=== PATIENT | male | born 1960 | race Caucasian/White ===

== ENCOUNTER 2019-03-24 11:11 | Inpatient (IN) | payer MEDICAID ==
[~2019-03-24] VITALS: Ht 180.3 cm; Wt 65.8 kg
[2019-03-24 12:07] LABS: BASOPHILS % (AUTO) 1.2 % (0.0-2.0); EOSINOPHILS % (AUTO) 0.3 % (1.0-6.0); HEMATOCRIT 40.5 % (41-53); HEMOGLOBIN 13.6 g/dL (13.5-17.5); LYMPHOCYTES % (AUTO) 21.2 % (22.0-44.0); MEAN CORPUSCULAR HEMOGLOBIN 35.5 pg (26.0-34.0); MEAN CORPUSCULAR HGB CONC 33.6 G/dL (31.0-37.0); MEAN CORPUSCULAR VOLUME 106 fL (80-100); MONOCYTES # (AUTO) 0.5 K/uL (0.1-1.0); MONOCYTES % (AUTO) 9.5 % (2.0-9.0); NEUTROPHILS # (AUTO) 3.2 K/uL (1.8-7.7); NEUTROPHILS % (AUTO) 67.8 % (40.0-70.0); PLATELET COUNT (AUTO) 153 K/uL (150-450); RED BLOOD CELL COUNT(AUTO) 3.84 MIL/uL (4.50-5.90); RED CELL DISTRIBUTION WIDTH 17.4 % (11.5-14.5)
[2019-03-24 12:09] LABS: ANION GAP 9 mmol/L (8-16); CALCIUM, TOTAL 7.9 mg/dL (8.8-10.5); CARBON DIOXIDE 28 mmol/L (22-29); CHLORIDE 101 mmol/L (98-107); CREATININE 0.76 mg/dL (0.60-1.30); GLOMERULAR FILTR. RATE CALC > 60 mL/min (>60); GLUCOSE,RANDOM 94 mg/dL (70-110); POTASSIUM 3.6 mmol/L (3.5-5.1); SODIUM SERUM 138 mmol/L (136-145); UREA NITROGEN, BLOOD 9 mg/dL (7-18)
[2019-03-24 12:15] LABS: ALANINE AMINOTRANSFERASE 29 U/L (12-78); ALBUMIN 3.1 g/dL (3.4-5.0); ALKALINE PHOSPHATASE 131 U/L (46-116); ASPARTATE AMINOTRANSFERASE 117 U/L (15-37); BILIRUBIN,TOTAL 0.3 mg/dL (0.1-1.0); TOTAL PROTEIN, SERUM 6.7 g/dL (6.4-8.2)
[2019-03-24] MEDS ORDERED: SODIUM CHLORIDE 0.9% 1,000 ML IV ONE (13:15)
[2019-03-24 13:16] LABS: AMPHET/METH SCREEN,URINE NEGATIVE (NEGATIVE); BARBITURATE SCREEN, URINE NEGATIVE (NEGATIVE); BENZODIAZEPINES SCREEN,URINE POSITIVE (NEGATIVE); CANNABINOID SCREEN,URINE NEGATIVE (NEGATIVE); COCAINE SCREEN,URINE NEGATIVE (NEGATIVE); METHADONE SCREEN, URINE NEGATIVE (NEGATIVE); OPIATE SCREEN,URINE NEGATIVE (NEGATIVE); PHENCYCLIDINE SCREEN,URINE NEGATIVE (NEGATIVE)
[2019-03-24] MEDS ORDERED: MAGNESIUM SULFATE 2 GM, MVI, ADULT NO.1 WITH VIT K 10 ML, THIAMINE HCL 100 MG, FOLIC AC... IV ONE ×5 (14:30)
[2019-03-24] MEDS ORDERED: HALOPERIDOL 5 MG TABLET PO PRN (15:00)
[2019-03-24] MEDS ORDERED: LORazepam 2 MG TABLET PO PRN (15:00)
[2019-03-24] MEDS: LORazepam 2 MG TABLET PO PRN ×2 (19:33→23:30)
[2019-03-25] VITALS (10 sets, daily range): BP systolic 118–140; BP diastolic 70–94
[2019-03-25 05:10] LABS: CHOL/HDL RATIO 1.3 (4.2-7.3); FREE T4 (FREE THYROXINE) 0.76 ng/dL (0.76-1.46); THYROID STIMULATING HORMONE 1.09 uIU/mL (0.36-3.74)
[2019-03-25] MEDS: LORazepam 2 MG TABLET PO SCH ×4 (08:06→20:26)
[2019-03-25] MEDS: LORazepam 2 MG TABLET PO PRN (10:27)
[2019-03-25] MEDS: NICOTINE 21 MG/24 HOUR PATCH TD SCH (11:45)
[2019-03-25] MEDS ORDERED: INFLUENZA VIRUS VACCINE QVS 2019-20 (3YR+)/PF 60 MCG/0.5 ML SYRINGE IM ONE (13:15)
[2019-03-25] MEDS: QUEtiapine FUMARATE 100 MG TABLET PO SCH (20:25)
[2019-03-26 06:43] VITALS: BP 128/81
[2019-03-26] MEDS: LORazepam 2 MG TABLET PO SCH ×4 (08:18→20:14)
[2019-03-26] MEDS: NICOTINE 21 MG/24 HOUR PATCH TD SCH (08:18)
[2019-03-26] MEDS: FLUoxetine HCL 20 MG CAPSULE PO SCH (08:18)
[2019-03-26 08:22] LABS: FREE T4 (FREE THYROXINE) 0.85 ng/dL (0.76-1.46); MAGNESIUM 1.5 mg/dL (1.80-2.40); THYROID STIMULATING HORMONE 1.64 uIU/mL (0.36-3.74)
[2019-03-26 08:26] VITALS: BP 124/78
[2019-03-26] MEDS: NICOTINE POLACRILEX 4 MG LOZENGE PO PRN ×2 (12:40→20:52)
[2019-03-26] MEDS: MAGNESIUM OXIDE 400 MG TABLET PO SCH (16:24)
[2019-03-26 18:51] VITALS: BP 131/86
[2019-03-26] MEDS: QUEtiapine FUMARATE 100 MG TABLET PO SCH (20:14)
[2019-03-27 03:55] VITALS: BP 120/87
[2019-03-27] MEDS: NICOTINE POLACRILEX 4 MG LOZENGE PO PRN ×4 (04:00→21:00)
[2019-03-27] MEDS ORDERED: LORazepam 1 MG TABLET PO PRN (07:00)
[2019-03-27 08:15] VITALS: BP 116/82
[2019-03-27] MEDS: MAGNESIUM OXIDE 400 MG TABLET PO SCH ×2 (08:29→16:11)
[2019-03-27] MEDS: FLUoxetine HCL 20 MG CAPSULE PO SCH (08:29)
[2019-03-27] MEDS: LORazepam 1 MG TABLET PO SCH ×4 (08:29→20:14)
[2019-03-27] MEDS: NICOTINE 21 MG/24 HOUR PATCH TD SCH (08:35)
[2019-03-27] MEDS ORDERED: MAG HYDROX/AL HYDROX/SIMETH 30 ML SUSP UDCUP PO PRN (09:15)
[2019-03-27 16:00] VITALS: BP 138/89
[2019-03-27 16:23] VITALS: BP 138/89
[2019-03-27] MEDS ORDERED: ACETAMINOPHEN 325 MG TABLET PO PRN (18:15)
[2019-03-27] MEDS ORDERED: IBUPROFEN 600 MG TABLET PO PRN (18:15)
[2019-03-27 18:43] VITALS: BP 128/82
[2019-03-27] MEDS: QUEtiapine FUMARATE 100 MG TABLET PO SCH (20:14)
[2019-03-27] MEDS: ZOLPIDEM TARTRATE 10 MG TABLET PO PRN (22:31)
[2019-03-28 00:13] VITALS: BP 127/65
[2019-03-28 00:15] VITALS: BP 127/65
[2019-03-28] MEDS: NICOTINE POLACRILEX 4 MG LOZENGE PO PRN ×3 (06:21→16:05)
[2019-03-28] MEDS: PANTOPRAZOLE SODIUM 40 MG DR TABLET PO SCH (06:37)
[2019-03-28] MEDS ORDERED: LORazepam 1 MG TABLET PO PRN (07:00)
[2019-03-28] MEDS: MAGNESIUM OXIDE 400 MG TABLET PO SCH ×2 (08:06→16:04)
[2019-03-28] MEDS: FLUoxetine HCL 20 MG CAPSULE PO SCH (08:06)
[2019-03-28 08:07] VITALS: BP 134/82
[2019-03-28 16:00] VITALS: BP 132/84
[2019-03-28 16:11] VITALS: BP_SYST 132; BP_SYST 84; BP_DIAS 84
[2019-03-28] MEDS ORDERED: ONDANSETRON HCL 4 MG TABLET PO PRN (16:45)
[2019-03-28] MEDS: ZOLPIDEM TARTRATE 10 MG TABLET PO PRN (20:06)
[2019-03-28] MEDS: QUEtiapine FUMARATE 100 MG TABLET PO SCH (20:06)
[2019-03-29] MEDS ORDERED: FLUO-191 PO (05:27)
[2019-03-29] MEDS ORDERED: QUET100T PO (05:27)
[2019-03-29] MEDS ORDERED: MAGOX PO (05:27)
[2019-03-29] MEDS ORDERED: PANT40TA25 PO (05:27)
[2019-03-29] MEDS: PANTOPRAZOLE SODIUM 40 MG DR TABLET PO SCH (06:37)
[2019-03-29 06:39] VITALS: BP 138/86
[2019-03-29 06:41] VITALS: BP 138/86
[2019-03-29] MEDS ORDERED: MAGNESIUM OXIDE 400 MG TABLET PO SCH (09:00)
== END 2019-03-29 07:30 | disposition home or self-care (01) | DRG 750 ==
LOC: EMS 11:12 → B2S 03-25 08:12
PROVIDERS: ADMIT Psychiatry & Neurology Psychiatry; ATTEND Psychiatry & Neurology Psychiatry
DX: F25.1 Schizoaffective disorder, depressive type (principal); R45.851 Suicidal ideations; Z59.0 Homelessness; F10.229 Alcohol dependence with intoxication, unspecified; F60.3 Borderline personality disorder; F17.210 Nicotine dependence, cigarettes, uncomplicated; F19.90 Other psychoactive substance use, unspecified, uncomplicated; R45.87 Impulsiveness; F41.9 Anxiety disorder, unspecified; Y90.8 Blood alcohol level of 240 mg/100 ml or more; Z80.3 Family history of malignant neoplasm of breast; Z80.42 Family history of malignant neoplasm of prostate
CPT/HCPCS: 70450; 72125; 80074; 83036; 83735; 84439; 84443; 90686; G0480; J3411; J3475; J3490; J7030; Q0162

== ENCOUNTER 2021-11-22 13:35 | Inpatient (IN) | payer MEDICAID, OTHER ==
[~2021-11-22] VITALS: Ht 180.3 cm; Wt 67.8 kg
[~2021-11-22 13:35] MED LIST: FLUO-177 PO; MAGN400T7 PO; PANT-31 PO; QUET100T PO
[2021-11-22] MEDS ORDERED: SODIUM CHLORIDE 0.9% 1,000 ML IV ONE (14:00)
[2021-11-22 14:12] LABS: BASOPHILS % (AUTO) 0.7 % (0.0-2.0); EOSINOPHILS % (AUTO) 0.8 % (1.0-6.0); HEMATOCRIT 34.8 % (41-53); HEMOGLOBIN 11.9 g/dL (13.5-17.5); LYMPHOCYTES # (AUTO) 1.1 K/uL (1.0-4.8); LYMPHOCYTES % (AUTO) 16.2 % (22.0-44.0); MEAN CORPUSCULAR HGB CONC 34.3 G/dL (31.0-37.0); MEAN CORPUSCULAR VOLUME 99 fL (80-100); MONOCYTES # (AUTO) 0.7 K/uL (0.1-1.0); MONOCYTES % (AUTO) 10.9 % (2.0-9.0); NEUTROPHILS # (AUTO) 4.7 K/uL (1.8-7.7); NEUTROPHILS % (AUTO) 71.4 % (40.0-70.0); PLATELET COUNT (AUTO) 169 K/uL (150-450); RED BLOOD CELL COUNT(AUTO) 3.51 MIL/uL (4.50-5.90); RED CELL DISTRIBUTION WIDTH 17.2 % (11.5-14.5)
[2021-11-22 14:21] LABS: ANION GAP 10 mmol/L (8-16); CALCIUM, TOTAL 8.2 mg/dL (8.8-10.5); CARBON DIOXIDE 25 mmol/L (22-29); CHLORIDE 97 mmol/L (98-107); GLUCOSE,RANDOM 82 mg/dL (70-110); POTASSIUM 4.1 mmol/L (3.5-5.1); SODIUM SERUM 132 mmol/L (136-145); UREA NITROGEN, BLOOD 7 mg/dL (7-18)
[2021-11-22 14:23] LABS: GLOMERULAR FILTR. RATE CALC > 60 mL/min (>60)
[2021-11-22 14:27] LABS: ALANINE AMINOTRANSFERASE 42 U/L (12-78); ALKALINE PHOSPHATASE 128 U/L (46-116); ASPARTATE AMINOTRANSFERASE 154 U/L (15-37); BILIRUBIN,TOTAL 0.4 mg/dL (0.1-1.0); TOTAL PROTEIN, SERUM 6.9 g/dL (6.4-8.2)
[2021-11-22 14:54] LABS: SALICYLATE 2.5 mg/dL (2.8-20.0)
[2021-11-22 14:55] LABS: COVID AG,FIA SOURCE NASAL SWAB
[2021-11-22 16:06] LABS: ACETAMINOPHEN < 2 mcg/mL (10-30)
[2021-11-22] MEDS ORDERED: HALOPERIDOL 5 MG TABLET PO PRN (16:15)
[2021-11-22] MEDS: ZOLPIDEM TARTRATE 10 MG TABLET PO PRN (20:32)
[2021-11-22] MEDS: LORazepam 2 MG TABLET PO PRN (23:12)
[2021-11-23] VITALS (7 sets, daily range): BP systolic 104–144; BP diastolic 64–82
[2021-11-23] MEDS ORDERED: ONDANSETRON HCL 4 MG TABLET PO PRN (07:00)
[2021-11-23] MEDS ORDERED: MAG HYDROX/AL HYDROX/SIMETH ES 30 ML SUSPENSION UDCUP PO PRN (07:00)
[2021-11-23] MEDS ORDERED: CloNIDine HCL 0.1 MG TABLET PO PRN (07:00)
[2021-11-23] MEDS ORDERED: LOPERAMIDE HCL 2 MG CAPSULE PO PRN (07:00)
[2021-11-23] MEDS ORDERED: GuaiFENesin/D-METHORPHAN [SUGAR-FREE] 200-20MG/10 ML SYRUP UDCUP PO PRN (07:00)
[2021-11-23] MEDS ORDERED: DOCUSATE SODIUM 100 MG CAPSULE PO PRN (07:00)
[2021-11-23] MEDS ORDERED: ALBUTEROL SULFATE HFA 90 MCG/PUFF 8 GM INHALER IH PRN (07:00)
[2021-11-23] MEDS ORDERED: PETROLATUM,WHITE 28 GM JELLY TP PRN (07:00)
[2021-11-23] MEDS ORDERED: MAGNESIUM HYDROXIDE SUSPENSION 30 ML UDCUP PO PRN (07:00)
[2021-11-23] MEDS: LORazepam 2 MG TABLET PO PRN ×3 (07:02→14:10)
[2021-11-23] MEDS: PANTOPRAZOLE SODIUM 40 MG DR TABLET PO SCH (07:20)
[2021-11-23] MEDS: ACETAMINOPHEN 325 MG TABLET PO PRN (11:42)
[2021-11-23] MEDS: FLUoxetine HCL 20 MG CAPSULE PO SCH (13:30)
[2021-11-23] MEDS: QUEtiapine FUMARATE 100 MG TABLET PO SCH (20:49)
[2021-11-24] MEDS: LORazepam 2 MG TABLET PO PRN (04:00)
[2021-11-24 04:25] VITALS: BP 126/89
[2021-11-24 05:27] VITALS: BP 130/79
[2021-11-24] MEDS: PANTOPRAZOLE SODIUM 40 MG DR TABLET PO SCH (06:30)
[2021-11-24] MEDS ORDERED: LORazepam 2 MG TABLET PO PRN (07:00)
[2021-11-24 09:00] VITALS: BP 124/82
[2021-11-24] MEDS: LORazepam 2 MG TABLET PO SCH ×4 (09:00→21:23)
[2021-11-24] MEDS: FLUoxetine HCL 20 MG CAPSULE PO SCH (09:00)
[2021-11-24 13:00] VITALS: BP 118/87
[2021-11-24] MEDS: NICOTINE 14 MG/24 HOUR PATCH TD PRN (17:47)
[2021-11-24 18:05] VITALS: BP 108/69
[2021-11-24] MEDS: QUEtiapine FUMARATE 100 MG TABLET PO SCH (21:23)
[2021-11-25] VITALS (7 sets, daily range): BP systolic 107–146; BP diastolic 69–91
[2021-11-25] MEDS: ZOLPIDEM TARTRATE 10 MG TABLET PO PRN (01:57)
[2021-11-25] MEDS: PANTOPRAZOLE SODIUM 40 MG DR TABLET PO SCH (06:51)
[2021-11-25] MEDS: LORazepam 2 MG TABLET PO SCH ×4 (09:42→20:10)
[2021-11-25] MEDS: FLUoxetine HCL 20 MG CAPSULE PO SCH (09:42)
[2021-11-25] MEDS: NICOTINE 14 MG/24 HOUR PATCH TD PRN (10:31)
[2021-11-25] MEDS: ACETAMINOPHEN 325 MG TABLET PO PRN ×2 (11:32→20:11)
[2021-11-25] MEDS: QUEtiapine FUMARATE 100 MG TABLET PO SCH (20:10)
[2021-11-25] MEDS: NICOTINE POLACRILEX 2 MG GUM CHEW PRN (22:08)
[2021-11-26] MEDS: NICOTINE POLACRILEX 2 MG GUM CHEW PRN ×4 (02:13→19:54)
[2021-11-26 02:50] VITALS: BP 104/72
[2021-11-26] MEDS: PANTOPRAZOLE SODIUM 40 MG DR TABLET PO SCH (06:33)
[2021-11-26] MEDS ORDERED: LORazepam 1 MG TABLET PO PRN (07:00)
[2021-11-26 10:05] VITALS: BP 125/84
[2021-11-26 10:15] VITALS: BP 125/84
[2021-11-26] MEDS: LORazepam 1 MG TABLET PO SCH ×4 (10:53→19:56)
[2021-11-26] MEDS: FLUoxetine HCL 20 MG CAPSULE PO SCH (10:53)
[2021-11-26 16:00] VITALS: BP 146/82
[2021-11-26 16:36] VITALS: BP 146/82
[2021-11-26] MEDS: QUEtiapine FUMARATE 100 MG TABLET PO SCH (19:56)
[2021-11-26] MEDS: ZOLPIDEM TARTRATE 10 MG TABLET PO PRN (21:13)
[2021-11-27] MEDS: NICOTINE POLACRILEX 2 MG GUM CHEW PRN ×5 (00:46→21:03)
[2021-11-27] MEDS: LORazepam 2 MG TABLET PO PRN ×2 (00:46→13:29)
[2021-11-27 00:47] VITALS: BP 101/69
[2021-11-27 00:49] VITALS: BP 101/69
[2021-11-27] MEDS: PANTOPRAZOLE SODIUM 40 MG DR TABLET PO SCH (06:46)
[2021-11-27] MEDS ORDERED: LORazepam 1 MG TABLET PO PRN (07:00)
[2021-11-27 08:00] VITALS: BP 115/73
[2021-11-27] MEDS: FLUoxetine HCL 20 MG CAPSULE PO SCH (09:51)
[2021-11-27 16:00] VITALS: BP 107/75
[2021-11-27 16:23] VITALS: BP 107/75
[2021-11-27] MEDS: QUEtiapine FUMARATE 100 MG TABLET PO SCH (20:49)
[2021-11-27] MEDS: ZOLPIDEM TARTRATE 10 MG TABLET PO PRN (23:03)
[2021-11-28] MEDS: NICOTINE POLACRILEX 2 MG GUM CHEW PRN ×4 (04:44→18:32)
[2021-11-28 04:52] VITALS: BP 117/81
[2021-11-28 06:07] LABS: COVID AG,FIA SOURCE NASAL SWAB
[2021-11-28] MEDS: PANTOPRAZOLE SODIUM 40 MG DR TABLET PO SCH (06:24)
[2021-11-28] MEDS: FLUoxetine HCL 20 MG CAPSULE PO SCH (08:16)
[2021-11-28] MEDS: LORazepam 2 MG TABLET PO PRN ×3 (08:17→18:32)
[2021-11-28] MEDS: ACETAMINOPHEN 325 MG TABLET PO PRN (08:17)
[2021-11-28 08:44] VITALS: BP 128/83
[2021-11-28 16:11] VITALS: BP 123/81
[2021-11-28 18:32] VITALS: BP 132/79
[2021-11-28] MEDS: QUEtiapine FUMARATE 100 MG TABLET PO SCH (20:12)
[2021-11-29 05:27] VITALS: BP 113/79
[2021-11-29] MEDS: NICOTINE POLACRILEX 2 MG GUM CHEW PRN ×4 (06:12→22:20)
[2021-11-29] MEDS: PANTOPRAZOLE SODIUM 40 MG DR TABLET PO SCH (06:13)
[2021-11-29] MEDS ORDERED: PERMETHRIN 1% 60 ML LOTION TP ONE (06:30)
[2021-11-29] MEDS: FLUoxetine HCL 20 MG CAPSULE PO SCH (08:54)
[2021-11-29] MEDS: LORazepam 2 MG TABLET PO PRN ×2 (08:55→18:13)
[2021-11-29 09:00] VITALS: BP 102/65
[2021-11-29 16:21] VITALS: BP 104/68
[2021-11-29] MEDS: QUEtiapine FUMARATE 100 MG TABLET PO SCH (20:43)
[2021-11-30] MEDS: NICOTINE POLACRILEX 2 MG GUM CHEW PRN ×3 (05:59→18:53)
[2021-11-30] MEDS: PANTOPRAZOLE SODIUM 40 MG DR TABLET PO SCH (06:17)
[2021-11-30] MEDS: FOLIC ACID 1 MG TABLET PO SCH (08:19)
[2021-11-30] MEDS: FLUoxetine HCL 20 MG CAPSULE PO SCH (08:19)
[2021-11-30] MEDS: THIAMINE 100 MG TABLET PO SCH (08:19)
[2021-11-30] MEDS: LORazepam 2 MG TABLET PO PRN ×2 (09:24→14:15)
[2021-11-30 16:00] VITALS: BP 121/70
[2021-11-30] MEDS: QUEtiapine FUMARATE 100 MG TABLET PO SCH (20:41)
[2021-12-01] MEDS: NICOTINE POLACRILEX 2 MG GUM CHEW PRN ×5 (01:38→22:11)
[2021-12-01 05:49] VITALS: BP 129/79
[2021-12-01] MEDS: PANTOPRAZOLE SODIUM 40 MG DR TABLET PO SCH (06:49)
[2021-12-01 08:03] VITALS: BP 117/72
[2021-12-01] MEDS: THIAMINE 100 MG TABLET PO SCH (08:54)
[2021-12-01] MEDS: FLUoxetine HCL 20 MG CAPSULE PO SCH (08:54)
[2021-12-01] MEDS: FOLIC ACID 1 MG TABLET PO SCH (08:54)
[2021-12-01] MEDS: LORazepam 2 MG TABLET PO PRN ×2 (09:22→18:10)
[2021-12-01 16:14] VITALS: BP 96/65
[2021-12-01] MEDS: QUEtiapine FUMARATE 100 MG TABLET PO SCH (20:51)
[2021-12-02] MEDS: NICOTINE POLACRILEX 2 MG GUM CHEW PRN ×3 (06:12→19:56)
[2021-12-02] MEDS: PANTOPRAZOLE SODIUM 40 MG DR TABLET PO SCH (06:32)
[2021-12-02 08:00] VITALS: BP 125/83
[2021-12-02] MEDS: THIAMINE 100 MG TABLET PO SCH (08:37)
[2021-12-02] MEDS: FLUoxetine HCL 20 MG CAPSULE PO SCH (08:38)
[2021-12-02] MEDS: FOLIC ACID 1 MG TABLET PO SCH (08:38)
[2021-12-02] MEDS: LORazepam 2 MG TABLET PO PRN ×2 (14:07→19:56)
[2021-12-02] MEDS ORDERED: PERMETHRIN 1% 60 ML LOTION TP ONE (15:30)
[2021-12-02 16:07] VITALS: BP 128/83
[2021-12-02] MEDS: QUEtiapine FUMARATE 100 MG TABLET PO SCH (21:10)
[2021-12-03] MEDS: NICOTINE POLACRILEX 2 MG GUM CHEW PRN ×3 (06:06→18:26)
[2021-12-03] MEDS: PANTOPRAZOLE SODIUM 40 MG DR TABLET PO SCH (06:35)
[2021-12-03] MEDS: THIAMINE 100 MG TABLET PO SCH (08:51)
[2021-12-03] MEDS: FLUoxetine HCL 20 MG CAPSULE PO SCH (08:51)
[2021-12-03] MEDS: LORazepam 2 MG TABLET PO PRN ×2 (08:51→18:26)
[2021-12-03] MEDS: FOLIC ACID 1 MG TABLET PO SCH (08:54)
[2021-12-03 09:42] VITALS: BP 115/78
[2021-12-03 16:00] VITALS: BP 124/73
[2021-12-03] MEDS: QUEtiapine FUMARATE 100 MG TABLET PO SCH (21:10)
[2021-12-04] MEDS: PANTOPRAZOLE SODIUM 40 MG DR TABLET PO SCH (06:28)
[2021-12-04] MEDS: NICOTINE POLACRILEX 2 MG GUM CHEW PRN ×3 (06:32→20:19)
[2021-12-04 08:00] VITALS: BP 108/74
[2021-12-04] MEDS: FLUoxetine HCL 20 MG CAPSULE PO SCH (08:23)
[2021-12-04] MEDS: FOLIC ACID 1 MG TABLET PO SCH (08:23)
[2021-12-04] MEDS: THIAMINE 100 MG TABLET PO SCH (08:23)
[2021-12-04 08:48] VITALS: BP 115/78
[2021-12-04] MEDS: LORazepam 2 MG TABLET PO PRN ×2 (08:48→15:31)
[2021-12-04 09:32] VITALS: BP 114/69
[2021-12-04] MEDS: ACETAMINOPHEN 325 MG TABLET PO PRN (09:32)
[2021-12-04 16:00] VITALS: BP 112/72
[2021-12-04] MEDS: QUEtiapine FUMARATE 100 MG TABLET PO SCH (20:18)
[2021-12-04 21:02] VITALS: BP 118/77
[2021-12-05 05:17] VITALS: BP 120/76
[2021-12-05] MEDS: IBUPROFEN 400 MG TABLET PO PRN (05:17)
[2021-12-05] MEDS: NICOTINE POLACRILEX 2 MG GUM CHEW PRN ×3 (05:17→19:41)
[2021-12-05] MEDS: PANTOPRAZOLE SODIUM 40 MG DR TABLET PO SCH (06:28)
[2021-12-05 07:54] LABS: COVID AG,FIA SOURCE NASAL SWAB
[2021-12-05 08:33] VITALS: BP 103/74
[2021-12-05] MEDS: THIAMINE 100 MG TABLET PO SCH (09:35)
[2021-12-05] MEDS: FOLIC ACID 1 MG TABLET PO SCH (09:35)
[2021-12-05] MEDS: FLUoxetine HCL 20 MG CAPSULE PO SCH (09:35)
[2021-12-05] MEDS: LORazepam 2 MG TABLET PO PRN ×2 (14:14→20:32)
[2021-12-05 16:00] VITALS: BP 103/79
[2021-12-05 20:30] VITALS: BP 117/77
[2021-12-05] MEDS: QUEtiapine FUMARATE 100 MG TABLET PO SCH (21:23)
[2021-12-06] MEDS: PANTOPRAZOLE SODIUM 40 MG DR TABLET PO SCH (06:28)
[2021-12-06] MEDS: NICOTINE POLACRILEX 2 MG GUM CHEW PRN ×3 (08:09→20:00)
[2021-12-06] MEDS: FLUoxetine HCL 20 MG CAPSULE PO SCH (08:09)
[2021-12-06 08:10] VITALS: BP 108/75
[2021-12-06] MEDS: LORazepam 2 MG TABLET PO PRN ×2 (08:10→16:32)
[2021-12-06] MEDS: IBUPROFEN 400 MG TABLET PO PRN (08:10)
[2021-12-06 09:10] VITALS: BP 118/72
[2021-12-06 16:12] VITALS: BP 132/77
[2021-12-06] MEDS: QUEtiapine FUMARATE 100 MG TABLET PO SCH (20:00)
[2021-12-07] MEDS: NICOTINE POLACRILEX 2 MG GUM CHEW PRN ×3 (05:36→20:43)
[2021-12-07] MEDS: PANTOPRAZOLE SODIUM 40 MG DR TABLET PO SCH (07:02)
[2021-12-07] MEDS: FLUoxetine HCL 20 MG CAPSULE PO SCH (08:06)
[2021-12-07 08:30] VITALS: BP 117/79
[2021-12-07] MEDS: LORazepam 2 MG TABLET PO PRN ×2 (10:11→18:26)
[2021-12-07 16:09] VITALS: BP 128/86
[2021-12-07] MEDS: IBUPROFEN 400 MG TABLET PO PRN (18:27)
[2021-12-07 18:28] VITALS: BP 130/74
[2021-12-07] MEDS: QUEtiapine FUMARATE 100 MG TABLET PO SCH (20:43)
[2021-12-08] MEDS: NICOTINE POLACRILEX 2 MG GUM CHEW PRN ×3 (05:54→20:17)
[2021-12-08] MEDS: PANTOPRAZOLE SODIUM 40 MG DR TABLET PO SCH (06:08)
[2021-12-08 08:04] VITALS: BP 109/68
[2021-12-08] MEDS: LORazepam 2 MG TABLET PO PRN ×2 (10:48→18:42)
[2021-12-08] MEDS: FLUoxetine HCL 20 MG CAPSULE PO SCH (12:39)
[2021-12-08] MEDS: QUEtiapine FUMARATE 100 MG TABLET PO SCH (20:14)
[2021-12-08] MEDS: ACETAMINOPHEN 325 MG TABLET PO PRN (20:17)
[2021-12-08 20:52] VITALS: BP 138/89
[2021-12-09] MEDS: PANTOPRAZOLE SODIUM 40 MG DR TABLET PO SCH (06:17)
[2021-12-09] MEDS: FLUoxetine HCL 20 MG CAPSULE PO SCH (08:39)
[2021-12-09] MEDS: NICOTINE POLACRILEX 2 MG GUM CHEW PRN ×3 (08:46→20:40)
[2021-12-09 09:35] VITALS: BP 128/59
[2021-12-09] MEDS: LORazepam 2 MG TABLET PO PRN (14:36)
[2021-12-09 17:11] VITALS: BP 115/65
[2021-12-09] MEDS: QUEtiapine FUMARATE 100 MG TABLET PO SCH (20:39)
[2021-12-10] MEDS: NICOTINE POLACRILEX 2 MG GUM CHEW PRN ×4 (06:36→21:00)
[2021-12-10] MEDS: PANTOPRAZOLE SODIUM 40 MG DR TABLET PO SCH (06:36)
[2021-12-10 08:30] VITALS: BP 135/83
[2021-12-10] MEDS: FLUoxetine HCL 20 MG CAPSULE PO SCH (09:05)
[2021-12-10] MEDS: LORazepam 2 MG TABLET PO PRN (11:35)
[2021-12-10] MEDS: ACETAMINOPHEN 325 MG TABLET PO PRN (11:35)
[2021-12-10 11:38] VITALS: BP 136/74
[2021-12-10 16:11] VITALS: BP 106/63
[2021-12-10] MEDS: QUEtiapine FUMARATE 100 MG TABLET PO SCH (20:23)
[2021-12-11] MEDS: ZOLPIDEM TARTRATE 10 MG TABLET PO PRN (01:26)
[2021-12-11] MEDS: NICOTINE POLACRILEX 2 MG GUM CHEW PRN ×4 (06:05→21:00)
[2021-12-11] MEDS: PANTOPRAZOLE SODIUM 40 MG DR TABLET PO SCH (06:05)
[2021-12-11] MEDS: FLUoxetine HCL 20 MG CAPSULE PO SCH (08:50)
[2021-12-11 09:26] VITALS: BP 121/85
[2021-12-11] MEDS: LORazepam 2 MG TABLET PO PRN (13:19)
[2021-12-11] MEDS: QUEtiapine FUMARATE 100 MG TABLET PO SCH (21:00)
[2021-12-12] MEDS: NICOTINE POLACRILEX 2 MG GUM CHEW PRN ×3 (06:28→16:00)
[2021-12-12] MEDS: PANTOPRAZOLE SODIUM 40 MG DR TABLET PO SCH (06:28)
[2021-12-12 07:19] LABS: COVID AG,FIA SOURCE NASAL SWAB
[2021-12-12] MEDS: FLUoxetine HCL 20 MG CAPSULE PO SCH (08:33)
[2021-12-12 08:48] VITALS: BP 96/63
[2021-12-12] MEDS: ACETAMINOPHEN 325 MG TABLET PO PRN (11:45)
[2021-12-12 11:46] VITALS: BP 120/72
[2021-12-12 16:23] VITALS: BP 144/76
[2021-12-12] MEDS: LORazepam 2 MG TABLET PO PRN (18:40)
[2021-12-12] MEDS: QUEtiapine FUMARATE 100 MG TABLET PO SCH (20:57)
[2021-12-13] MEDS: PANTOPRAZOLE SODIUM 40 MG DR TABLET PO SCH (06:00)
[2021-12-13] MEDS: NICOTINE POLACRILEX 2 MG GUM CHEW PRN ×2 (06:09→11:53)
[2021-12-13] MEDS: FLUoxetine HCL 20 MG CAPSULE PO SCH (08:17)
[2021-12-13] MEDS ORDERED: PANT-31 PO (12:17)
[2021-12-13] MEDS ORDERED: QUET100T PO (12:17)
[2021-12-13] MEDS ORDERED: FLUO-177 PO (12:17)
== END 2021-12-13 15:15 | disposition home or self-care (01) | DRG 750 ==
LOC: EMS 13:36 → 3EI 16:14
PROVIDERS: ADMIT Psychiatry & Neurology Child & Adolescent Psychiatry; ATTEND Psychiatry & Neurology Child & Adolescent Psychiatry
DX: F25.1 Schizoaffective disorder, depressive type (principal); E87.1 Hypo-osmolality and hyponatremia; F17.210 Nicotine dependence, cigarettes, uncomplicated; K21.9 Gastro-esophageal reflux disease without esophagitis; D64.9 Anemia, unspecified; F10.129 Alcohol abuse with intoxication, unspecified; Y90.9 Presence of alcohol in blood, level not specified; Z59.00 Homelessness unspecified; Z79.899 Other long term (current) drug therapy
CPT/HCPCS: 80053; 85025; 94761; 99285; G0480; G0481; J7030; Q0162